=== PATIENT | male | born 1965 | race Caucasian/White ===

== ENCOUNTER 2018-12-15 07:39 | Day surgery (SDC) | payer OTHER ==
[2018-12-13 15:59] VITALS: BMI 33.6
[~2018-12-15 07:39] MED LIST: LACTATED RINGERS 1,000 ML IV SCH; LIDOCAINE 1% 20 ML VIAL (10MG/ML) FOR IV START INTRADERMA PRN; MIDAZOLAM (PF) 2 MG/2 ML VIAL IV PRN
[2018-12-15] MEDS ORDERED: ACETAMINOPHEN TAB 500 MG TAB PO ONE (07:56)
[2018-12-15 07:59] VITALS: RESP 18; TEMP 98
[2018-12-15] MEDS ORDERED: PROPOFOL 10 MG/ML 20 ML VIAL IV ONE (08:48)
[2018-12-15] MEDS ORDERED: MIDAZOLAM 2 MG/2 ML VIAL ONE (08:48)
[2018-12-15] MEDS ORDERED: fentaNYL (PF) 50 MCG/ML 2 ML AMP ONE (08:48)
[2018-12-15 09:29] VITALS: BP 130/89; PULSE 69
--- NOTE | 2018-12-15 10:11 | P.PCN ---
Date of Procedure: 12/15/18 Procedure(s) Performed: Procedure: Total colonoscopy. Preoperative diagnosis: Screening for neoplasia, patient has history of polyps. Postoperative diagnosis: Exam within normal limits. Preparation: HalfLytely prep. Sedation: Was provided by anesthesia. Brief clinical history: The patient is a 53-year-old male who is scheduled for this evaluation for screening for neoplasia because of history of polyps. He had two prior exams the last was around 5 years ago. The patient has no abdominal complaints, bleeding or anemia. Procedure: With the patient on his left lateral decubitus position and after informed consent and adequate sedation, the perianal area was inspected and it did not show any fissures or fistulas. There were no masses felt on digital rectal examination. The Olympus CFH 190L video colonoscope was then inserted in the rectum in the usual fashion and advanced to the cecum. The mucosa appeared healthy. No polyps or tumors were seen or any obvious diverticular disease or other pathology. I retroflexed the endoscope in the rectum before the endoscope was withdrawn. The patient tolerated the procedure well. Plan: The patient was reassured. He will follow up with you as planned and I recommended repeat exam in 5 years.
== END 2018-12-15 09:43 | disposition home or self-care (01) ==
LOC: ORWHC2ENDO 07:39
DX: Z12.11 Encounter for screening for malignant neoplasm of colon (principal); N40.0 Benign prostatic hyperplasia without lower urinary tract symptoms; Z88.0 Allergy status to penicillin; Z88.5 Allergy status to narcotic agent; Z86.010 Personal history of colon polyps; Z79.1 Long term (current) use of non-steroidal anti-inflammatories (NSAID); Z79.899 Other long term (current) drug therapy
CPT/HCPCS: J2250; J3010; J2704; G0105; 45378

== ENCOUNTER → 2024-10-26 | Outpatient (CLI) | payer OTHER ==
--- NOTE | 2024-10-26 17:13 | MR ---
EXAMINATION TYPE: MR thoracic spine wo con DATE OF EXAM: 10/26/2024 4:53 PM COMPARISON: None. CLINICAL INDICATION: Male, 59 years old with history of M54.6 PAIN IN TS R07.1 PAIN IN CHEST WHEN YENI ATHIN; PHH, Mid back pain x 4 mos, TECHNIQUE: Multi planar, multi sequence imaging was performed utilizing: T1-weighted, short-tau inver dusty recovery and T2-weighted of the thoracic spine. IV Contrast: mL (None, if empty) FINDINGS: Alignment: Alignment is within normal limits. Vertebral bodies have preserved heights. Spinal cord: Spinal cord is within normal limits for signal. Discs: Intervertebral disc signal is maintained. No evidence of significant spinal canal or neural fo raminal stenosis. There is no evidence of extradural defects or central spinal canal narrowing at any thoracic vertebral body level Osseous structures: No abnormal bony edema on inversion recovery sequences. Multilevel osteophyte for mation and facet joint arthropathy. Scattered disc space narrowing. 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 No evidence for disc herniation. No abnormal bony edema. [facility], , 10/26/2024 5:10 PM
== END | disposition home or self-care (01) ==
LOC: RADMRIMAIN 15:31
PROVIDERS: ATTEND Family Medicine
DX: M51.34 Other intervertebral disc degeneration, thoracic region (principal); R07.1 Chest pain on breathing; M47.894 Other spondylosis, thoracic region
CPT/HCPCS: 72146